=== PATIENT | male | born 1950 | race African-American/Black ===

== ENCOUNTER 2019-01-03 19:07 | Inpatient (IN) ==
[2019-01-03] MEDS ORDERED: guaiFENesin/DM ER 600-30 MG TABLET PO PRN (21:27)
[2019-01-03] MEDS ORDERED: NICOTINE 21 MG/24 HR PATCH TRANSDERM PRN (21:27)
[2019-01-03] MEDS ORDERED: BISACODYL 5 MG TABLET PO PRN (21:27)
[2019-01-03] MEDS ORDERED: hydrALAZINE 20 MG/1 ML VIAL IV PRN (21:27)
[2019-01-03] MEDS ORDERED: diphenhydrAMINE CAP 25 MG CAPSULE PO PRN (21:27)
[2019-01-03] MEDS ORDERED: ONDANSETRON 4 MG/2 ML VIAL IV PRN (21:27)
[2019-01-03] MEDS ORDERED: ACETAMINOPHEN 325 MG TABLET PO PRN (21:27)
[2019-01-03] MEDS ORDERED: ZALEPLON 5 MG CAPSULE PO PRN (21:27)
[2019-01-03] MEDS ORDERED: PNEUMOCOCCAL VACCINE (13 VALENT) 0.5 ML SYRINGE IM ONE (21:39)
[2019-01-03] MEDS ORDERED: INFLUENZA VIRUS VACCINE 0.5 ML SYRINGE IM ONE (21:39)
[2019-01-03] MEDS ORDERED: cloNIDine 0.1 MG TABLET PO ONE (22:00)
[2019-01-03] MEDS: cefTRIAXone 1,000 MG in SYRINGE 1 EACH IV SCH (22:21)
[2019-01-03] MEDS: AZITHROMYCIN INJ 500 MG in SODIUM CHLORIDE 0.9% 250 ML IV SCH (22:22)
[2019-01-03] MEDS: CARVEDILOL 6.25 MG TABLET PO SCH (22:23)
[2019-01-03 22:34] LABS: Basophils % 0.2 % (0.0-0.8); Hematocrit 41.1 VOL% (42.0-52.0); Hemoglobin 13.6 GM/DL (14.0-18.0); Immature Granulocytes % 0.4 %; Immature Granulocytes Absolute 0.02 #; Lymphocytes # 0.7 10*3/uL (1.4-4.0); Mean Corpuscular HGB Conc 33.1 GM/DL (32-36); Mean Corpuscular Hemoglobin 36 PG (27-34); Mean Corpuscular Volume 107.3 FL (87-102); Mean Platelet Volume 11.9 FL (9.6-12.0); Monocytes # 0.2 10*3/uL (0.11-0.8); Neutrophils # 4.6 10*3/uL (1.4-7.4); Neutrophils % 84.4 % (38.7-73.9); Platelet Count 197 T/CUMM (130-400); Red Blood Count 3.83 MC/CUMM (3.8-5.5); White Blood Count 5.4 T/CUMM (4-12)
[2019-01-03 23:04] LABS: Albumin 4.1 G/DL (3.4-5.0); Bilirubin,Total 0.7 MG/DL (0.2-1.0); Calcium 9.5 MG/DL (8.5-10.1); Osmolality,Calculated 285.1 MOS/KG (273-304); Potassium 3.4 MMOL/L (3.5-5.1); Total Protein 8.1 G/DL (6.4-8.3); VLDL CHOLESTEROL 13.6 MG/DL
[2019-01-03] MEDS: ALBUTEROL/IPRATROPIUM 3 ML NEB RESP TX SCH (23:55)
[2019-01-04] MEDS: ALBUTEROL/IPRATROPIUM 3 ML NEB RESP TX SCH ×6 (03:52→23:33)
[2019-01-04] MEDS ORDERED: MAGNESIUM SULF RIDER 2 GM in PREMIX 1 EACH IV ONE (07:13)
[2019-01-04] MEDS ORDERED: POTASSIUM CHLORIDE 20 MEQ TABLET PO ONE (07:14)
[2019-01-04 08:24] LABS: Folate 16.1 NG/ML (5.4-24.0)
[2019-01-04] MEDS: FUROSEMIDE 40 MG/4 ML VIAL IV SCH ×2 (08:56→20:52)
[2019-01-04] MEDS: PANTOPRAZOLE 40 MG TABLET PO SCH (08:57)
[2019-01-04] MEDS: LOSARTAN 25 MG TABLET PO SCH (08:57)
[2019-01-04] MEDS: ASPIRIN 325 MG TABLET PO SCH (08:57)
[2019-01-04] MEDS: ENOXAPARIN 40 MG/0.4 ML SYRINGE SUBCUT SCH (08:57)
[2019-01-04] MEDS: CARVEDILOL 6.25 MG TABLET PO SCH ×2 (08:57→20:53)
[2019-01-04] MEDS ORDERED: FUROSEMIDE 40 MG/4 ML VIAL IV SCH (09:00)
[2019-01-04 09:12] LABS: Apearance,Urine CLEAR (Clear); Bilirubin,Urine Negative (Negative); Blood, Urine Negative (Negative); Glucose,Urine (UA) Negative (Negative); Ketones,Urine Negative (Negative); Mucus,Urine Occasional /LPF (Occasional); Nitrite,Urine Negative (Negative); Protein,Urine Negative; Urine Color Yellow (Yellow); Urine Specific Gravity 1.018 (1.001-1.035); Urine Urobilinogen < 2.0 EU/DL (0.2-1.0); WBC,Urine <1 /HPF (0-6)
[2019-01-04] MEDS: POTASSIUM CHLORIDE 20 MEQ TABLET PO SCH ×2 (15:21→20:53)
[2019-01-04] MEDS: AZITHROMYCIN INJ 500 MG in SODIUM CHLORIDE 0.9% 250 ML IV SCH (20:59)
[2019-01-04] MEDS: cefTRIAXone 1,000 MG in SYRINGE 1 EACH IV SCH (21:00)
[2019-01-05] MEDS: ALBUTEROL/IPRATROPIUM 3 ML NEB RESP TX SCH ×3 (03:07→11:09)
[2019-01-05 04:27] LABS: Basophils % 0.3 % (0.0-0.8); Eosinophils % 0.5 % (0.00-10.9); Hematocrit 36.8 VOL% (42.0-52.0); Hemoglobin 12.1 GM/DL (14.0-18.0); Immature Granulocytes % 0.4 %; Immature Granulocytes Absolute 0.03 #; Lymphocytes % 25.9 % (21.2-54.2); Mean Corpuscular HGB Conc 32.9 GM/DL (32-36); Mean Corpuscular Hemoglobin 36 PG (27-34); Mean Corpuscular Volume 107.9 FL (87-102); Mean Platelet Volume 12.2 FL (9.6-12.0); Monocytes # 0.6 10*3/uL (0.11-0.8); Neutrophils # 4.9 10*3/uL (1.4-7.4); Neutrophils % 64.9 % (38.7-73.9); Platelet Count 160 T/CUMM (130-400); Red Blood Count 3.41 MC/CUMM (3.8-5.5); Red Cell Distribution Width 14.7 % (9.3-17.3); White Blood Count 7.6 T/CUMM (4-12)
[2019-01-05 04:38] LABS: Calcium 8.3 MG/DL (8.5-10.1); Osmolality,Calculated 281.4 MOS/KG (273-304)
[2019-01-05 06:53] LABS: Hypochromasia 1+; Macrocytosis 1+; Platelet Estimate Adequate; Target Cells Slight
[2019-01-05] MEDS: PANTOPRAZOLE 40 MG TABLET PO SCH (08:35)
[2019-01-05] MEDS: ASPIRIN 325 MG TABLET PO SCH (08:35)
[2019-01-05] MEDS: FUROSEMIDE 40 MG/4 ML VIAL IV SCH (08:35)
[2019-01-05] MEDS: POTASSIUM CHLORIDE 20 MEQ TABLET PO SCH (08:35)
[2019-01-05] MEDS: CARVEDILOL 6.25 MG TABLET PO SCH (08:35)
[2019-01-05] MEDS: LOSARTAN 25 MG TABLET PO SCH (08:35)
[2019-01-05] MEDS: ENOXAPARIN 40 MG/0.4 ML SYRINGE SUBCUT SCH (08:35)
[2019-01-05 12:14] VITALS: BP 126/83
== END 2019-01-05 12:45 | disposition home or self-care (01) | DRG 291 ==
LOC: N.5E 20:29 → SUATTDRO 20:29
PROVIDERS: ADMIT Internal Medicine; ATTEND Internal Medicine Cardiovascular Disease